=== PATIENT | female | born 1960 | race Caucasian/White ===

== ENCOUNTER → 2022-09-16 14:39 | Outpatient (BNVA) | payer SELFPAY | PROVIDERS: PCP Dermatology; Visit Provider Family Medicine | DX: Z13.6 Encounter for screening for cardiovascular disorders (principal) | CPT/HCPCS: 80061; 82947; 83036 ==

== ENCOUNTER → 2023-09-30 09:38 | Outpatient (BNVA) | payer SELFPAY | PROVIDERS: PCP Dermatology; Referring Provider Dermatology; Visit Provider Dermatology | DX: Z13.6 Encounter for screening for cardiovascular disorders (principal) | CPT/HCPCS: 80061; 82947; 83036 ==